=== PATIENT | female | born 1960 | race Caucasian/White ===

== ENCOUNTER → 2020-06-19 | Outpatient (CLI) | payer BC ==
[~2020-06-19] MED LIST: HOLD METFORMIN - RECEIVED CONTRAST 20 ML VIAL IV SCH; IOHEXOL 350 MG/ML 100 ML (OMNIPAQUE 350) VIAL IV ONE; NS 100 ML (IVPB) BAG IV ONE
[2020-06-19 08:17] LABS: CREATININE SERUM 0.97 MG/DL (0.60-1.30)
--- NOTE | 2020-06-19 09:32 | Diagnostic Imaging Report ---
PROCEDURE: CT neck soft tissue with contrast. TECHNIQUE: Multiple contiguous axial images were obtained through the neck after the administration of contrast. Auto Exposure Controls were utilized during the CT exam to meet ALARA standards for radiation dose reduction. INDICATION: Lump on right side of neck. COMPARISON: None FINDINGS: There are a couple of normal appearing lymph nodes in the right parotid gland, symmetric to the contralateral side. These are located directly underneath the radiopaque marker indicating the area of interest. The major salivary glands are normal bilaterally. Normal thyroid. No mass, fluid collection or lymphadenopathy in the neck. The pharyngeal and laryngeal soft tissues are symmetric bilaterally with no suspicious enhancement. The floor of the mouth, tongue base and epiglottis are negative. The cervical carotid and vertebral arteries are grossly patent. Normal orbits. Mastoids are clear. Mild mucosal thickening in the floor the right maxillary sinus. Mature anterior fusion with interbody bone grafting at C4-C7. No acute osseous findings. Pulmonary nodule in the right upper lobe measuring up to 0.7 cm. IMPRESSION: 1. No mass, fluid collection or lymphadenopathy in the neck. There are only normal-appearing lymph nodes underlying the radiopaque marker indicating the area of interest. 2. 0.7 cm pulmonary nodule in the right upper lobe may have a semisolid components. Recommend dedicated noncontrast chest CT. Report ws faxed to office of Dr. Delatorre by fabio at 9:30AM. Dictated by: Dictated on workstation # [id number]
== END ==
LOC: RAD 07:46
PROVIDERS: ATTEND Otolaryngology Otolaryngology/Facial Plastic Surgery
DX: R22.1 Localized swelling, mass and lump, neck (principal)
CPT/HCPCS: 36415; 70491; 82565; 84520

== ENCOUNTER → 2020-06-25 | Outpatient (CLI) | payer BC ==
--- NOTE | 2020-06-25 15:40 | Diagnostic Imaging Report ---
EXAMINATION: CT Chest without contrast. TECHNIQUE: Multiple contiguous axial images were obtained through the chest without the use of intravenous contrast. All CT scans use one or more of the following dose optimizing techniques: automated exposure control, MA and/or KvP adjustment based on a patient size and exam type, or iterative reconstruction. HISTORY: Right upper lobe pulmonary nodule follow-up. COMPARISON: CT neck 06/19/2020 FINDINGS: Thyroid: The thyroid is diminutive. Mediastinum: Heart size is normal without significant pericardial effusion. Calcifications of the aorta and coronary vessels. Thoracic aorta is normal in caliber. No suspicious lymphadenopathy. Lungs and airways: The lungs are clear without consolidation, pleural effusion, or pneumothorax. Redemonstrated 0.6 cm subsolid right upper lobe pulmonary nodule (series 3 image 44). There is a 0.4 cm right lower lobe pulmonary nodule (series 3 image 82). The airways are normal. Upper abdomen: Diffuse hypoattenuation of the liver compatible with hepatic steatosis. Cholecystectomy. Musculoskeletal: Surgical and degenerative changes of the spine without suspicious osseous lesion or compression fracture. IMPRESSION: 1. A 0.6 cm sub-solid right upper lobe pulmonary nodule. Recommend CT at 6-12 months, then every 2 years until 5 years. 2. A 0.4 cm right lower lobe pulmonary nodule. 3. No other acute abnormality in the chest. Dictated by: Dictated on workstation # [id number]
== END ==
LOC: RAD 14:24
PROVIDERS: ATTEND Otolaryngology Otolaryngology/Facial Plastic Surgery
DX: R91.8 Other nonspecific abnormal finding of lung field (principal)
CPT/HCPCS: 71250